=== PATIENT | female | born 2000 | race American Indian/Alaskan Native ===

== ENCOUNTER 2022-03-15 02:21 | Outpatient (CLI) | payer MEDICAID | END 2022-03-15 04:55 | disposition home or self-care (01) | LOC: APU 02:21 → TRG 02:21 | PROVIDERS: ATTEND Obstetrics & Gynecology | DX: O62.9 Abnormality of forces of labor, unspecified (principal); Z3A.39 39 weeks gestation of pregnancy | CPT/HCPCS: Q0177 ==